=== PATIENT | male | born 1985 ===

== ENCOUNTER 2016-10-19 08:32 | Emergency (ER) | payer MEDICAID ==
--- NOTE | 2016-10-19 09:58 | RAD ---
PROCEDURE: Left Foot Radiographs. HISTORY: fall from stairs, pain to plantar 1st metatarsal COMPARISON: None. FINDINGS: BONES: Normal. No fracture. JOINTS: Normal. SOFT TISSUES: Normal. OTHER FINDINGS: None. IMPRESSION: Normal left foot radiographs.
--- NOTE | 2016-10-19 09:59 | RAD ---
PROCEDURE: Left Ankle Radiographs. HISTORY: fall, from top of stairs COMPARISON: None FINDINGS: BONES: Normal. No fracture. JOINTS: Normal. No osteoarthritis. Ankle mortise maintained. Talar dome intact SOFT TISSUES: Lateral perimalleolar swelling OTHER FINDINGS: None. IMPRESSION: No fracture. Soft tissue swelling
--- NOTE | 2016-10-19 10:43 | C.PDOC ---
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 Patient now complains of pain to the plantar aspect of the foot and has pain with walking. Denies head injury, LOC, leg pain, back pain, weakness or numbness. Time Seen by Provider: 10/19/16 09:10 Chief Complaint (Nursing): Lower Extremity Problem/Injury History Per: Patient History/Exam Limitations: no limitations Onset/Duration Of Symptoms: Sudden Onset (1hr [employer] REPRESENTATIVE) Past Medical History Reviewed: Historical Data, Nursing Documentation, Vital Signs Vital Signs: Last Vital Signs Temp 97.9 F 10/19/16 11:05 Pulse 88 10/19/16 11:05 Resp 18 10/19/16 11:05 BP 142/90 10/19/16 11:05 Pulse Ox 98 10/19/16 11:05 - Medical History PMH: Anxiety, Bipolar Disorder, Depression, Schizophrenia - [facility] Procedures DETOXIFICATION SERVICES FOR SUBSTANCE ABUSE TREATMENT (04/19/16) GROUP SIDEWALK REPAIRER FOR SUBSTANCE ABUSE TREATMENT, PSYCHOEDUCATION (04/01/15) GROUP PSYCHOTHERAPY (06/27/15) INDIVIDUAL PSYCHOTHERAPY, SUPPORTIVE (06/27/15) PSYCHIA INTERV/EVAL NEC (12/10/13) Family History: States: No Known Family Hx - Social History Hx Alcohol Use: Yes Hx Substance Use: Yes (crack/cocaine marijuana heroin) - Immunization History Hx Tetanus Toxoid Vaccination: No Hx Influenza Vaccination: Yes Hx Pneumococcal Vaccination: No Review Of Systems Except As Marked, All Systems Reviewed And Found Negative. Musculoskeletal: Positive for: Foot Pain (Left foot, pain to the planatr aspect of the foot ). Negative for: Back Pain, Leg Pain Neurological: Negative for: Weakness, Numbness Physical Exam - Physical Exam Appears: Non-toxic, No Acute Distress Skin: Warm, Dry, No Rash Head: Atraumatic, Normacephalic Chest: Symmetrical, No Tenderness Cardiovascular: Rhythm Regular, No Murmur Respiratory: Normal Breath Sounds, No Rales, No Rhonchi, No Stridor, No Wheezing Extremity: No Calf Tenderness, Capillary Refill (<2), Other (Left Foot - Tenderness and mild swelling to the plantar aspect of the foot.) Pulses: Left Dorsalis Pedis: Normal, Right Dorsalis Pedis: Normal Neurological/Psych: Oriented x3, Normal Speech, Normal Motor ED Course And Treatment O2 Sat by Pulse Oximetry: 97 (RA ) Pulse Ox Interpretation: Normal - Other Rad X-Ray - Left Ankle X-Ray: Viewed By Me, Read By Radiologist Interpretation: PROCEDURE: Left Ankle Radiographs. HISTORY: fall, from top of stairs. COMPARISON: None. FINDINGS: BONES: Normal. No fracture. JOINTS : Normal. No osteoarthritis. Ankle mortise maintained. Talar dome intact. SOFT TISSUES: Lateral perimalleolar swelling. OTHER FINDINGS: None. IMPRESSION: No fracture. Soft tissue swelling. X-Ray - Left Foot X-Ray: Viewed By Me, Read By Radiologist Interpretation: PROCEDURE: Left Foot Radiographs. HISTORY: fall from stairs, pain to plantar 1st metatarsal. COMPARISON: None. FINDINGS: BONES: Normal. No fracture. JOINTS: Normal. SOFT TISSUES: Normal. OTHER FINDINGS: None. IMPRESSION: Normal left foot radiographs. Medical Decision Making Medical Decision Making: PLAN: * X-Ray - Left Ankle, Left Foot * Tylenol PO Patient was given gretel wrap and crutches for the foot. Disposition - Disposition Referrals: [facility] at [facility] [Outside] Juan Jose Morgan MD [Staff Provider] - Disposition: HOME/ ROUTINE Disposition Time: 10:00 Condition: GOOD Additional Instructions: Follow up with the medical doctor within 1-2 days. Return if worsened, Prescriptions: Ibuprofen [Motrin] 600 mg PO TID #21 tab Instructions: Foot Sprain (ED) - Clinical Impression Clinical Impression: Foot contusion - PA / DRAWER MAKER / Resident Statement MD/DO has reviewed & agrees with the documentation as recorded. - Scribe Statement The provider has reviewed the documentation as recorded by the Scribe Sil Dickerson All medical record entries made by the Scribe were at my direction and personally dictated by me. I have reviewed the chart and agree that the record accurately reflects my personal performance of the history, physical exam, medical decision making, and the department course for this patient. I have also personally directed, reviewed, and agree with the discharge instructions and disposition.
[2016-10-19 11:18] VITALS: BP 142/90; PULSE 88; RESP 18; TEMP 97.9
[2016-10-21 16:14] VITALS: O2SAT 97
== END 2016-10-19 11:36 | disposition home or self-care (01) ==
LOC: C.ER 08:32
DX: S90.32XA Contusion of left foot, initial encounter (principal); X58.XXXA Exposure to other specified factors, initial encounter; Y92.89 Other specified places as the place of occurrence of the external cause
CPT/HCPCS: 73610; 73630; 97116; 97161; 99285; G8978; G8979; G8980

== ENCOUNTER 2017-12-25 20:49 | Emergency (ER) | payer MEDICAID ==
[2017-12-25 21:08] VITALS: TEMP 98.3; O2SAT 98
--- NOTE | 2017-12-25 21:38 | C.PDOC ---
History Of Present Illness 32 y/o male brought to ED by EMS for acute ETOH intoxication. Patient states he has been drinking because he is depressed, states his girlfriend recently broke up with him. Patient denies SI/HI or any other physical complaints at this time. Time Seen by Provider: 12/25/17 21:37 Chief Complaint (Nursing): Substance Abuse History Per: Patient, EMS History/Exam Limitations: no limitations Onset/Duration Of Symptoms: Hrs Current Symptoms Are (Timing): Still Present Suicide/Self Injury Attempted (Context): None Modifying Factor(s): Alcohol Past Medical History Reviewed: Historical Data, Nursing Documentation, Vital Signs Vital Signs: Last Vital Signs Temp 98.3 F 12/25/17 21:04 Pulse 64 12/26/17 00:10 Resp 16 12/26/17 00:10 BP 102/68 12/26/17 00:10 Pulse Ox 98 12/26/17 00:10 - Medical History PMH: Anxiety, Bipolar Disorder, Depression, Schizophrenia Surgical History: No Surg Hx - [facility] Procedures DETOXIFICATION SERVICES FOR SUBSTANCE ABUSE TREATMENT (04/19/16) GROUP TIMBER MILL WORKER FOR SUBSTANCE ABUSE TREATMENT, PSYCHOEDUCATION (04/01/15) GROUP PSYCHOTHERAPY (06/27/15) INDIVIDUAL PSYCHOTHERAPY, SUPPORTIVE (06/27/15) PSYCHIA INTERV/EVAL NEC (12/10/13) Family History: States: No Known Family Hx - Social History Hx Alcohol Use: Yes Hx Substance Use: Yes (crack/cocaine marijuana heroin) - Immunization History Hx Tetanus Toxoid Vaccination: No Hx Influenza Vaccination: No Hx Pneumococcal Vaccination: No Review Of Systems Except As Marked, All Systems Reviewed And Found Negative. Cardiovascular: Negative for: Palpitations Respiratory: Negative for: Shortness of Breath Psych: Positive for: Depression, Other (substance abuse). Negative for: Suicidal ideation Physical Exam - Physical Exam Additional Physical Exam Comments: Constitutional: No acute distress. Head: Normocephalic. Atraumatic. Eyes: PERRL. ENT: Moist mucous membranes. Neck: Supple. Cardiovascular: Regular rate. Radial pulse 2+ bilaterally. Chest: No tenderness. Respiratory: Clear to auscultation bilaterally. GI: Soft. Nontender. Nondistended. Back: No CVA tenderness. Musculoskeletal: No tenderness or swelling of extremities. Skin: No rash. Neurologic: Intoxicated, ETOH on breath ED Course And Treatment O2 Sat by Pulse Oximetry: 98 (RA) Pulse Ox Interpretation: Normal Medical Decision Making Medical Decision Making: Impression: Alcohol intoxication Plan: Observe, discharge when sober. Disposition - Disposition Disposition: HOME/ ROUTINE Disposition Time: 00:00 Condition: STABLE Instructions: Alcohol Abuse and Alcoholism (DC) Forms: [facility] ([place]) - Clinical Impression Clinical Impression: Alcohol intoxication - Scribe Statement The provider has reviewed the documentation as recorded by the Scriblizzie Stevenson All medical record entries made by the Estebaniblizzie were at my direction and personally dictated by me. I have reviewed the chart and agree that the record accurately reflects my personal performance of the history, physical exam, medical decision making, and the department course for this patient. I have also personally directed, reviewed, and agree with the discharge instructions and disposition.
[2017-12-26 00:13] VITALS: BP 102/68; PULSE 64; RESP 16
== END 2017-12-26 01:31 | disposition home or self-care (01) ==
LOC: C.ER 20:49
DX: F10.129 Alcohol abuse with intoxication, unspecified (principal); F20.9 Schizophrenia, unspecified